=== PATIENT | female | born 1980 | race Caucasian/White ===

== ENCOUNTER → 2016-11-25 | Outpatient (CLI) | payer BC ==
[~2016-11-25] VITALS: Ht 177.8 cm; Wt 93.6 kg
[~2016-11-25] MED LIST: CALCITRIOL PO; CALCIUM 600/VIT1 CAP PO; CITRACAL + D CA1 TAB PO; DIFLUCAN 100MG100 MG PO; IRON TABLETS325 MG PO; LEVAQUIN 5500 MG/TA1 PO; LEVOXYL0.025 MG PO; LEVOXYL0.125 MG PO; MASON NATURAL2000 IU PO; NATURAL MAGNES200 MG PO; NEURONTIN300 MG/CAP PO; NEURONTIN600 MG/TAB PO; PRILOSEC 20MG20 MG PO; ROXICODONE 55 MG/TAB PO; SYNTHROID0.137 MG PO; TYLENOL 500MG500 MG PO; ULTRAM 50MG TAB50 MG PO; VITAMIN B11000 MCG/M IM; XANAX .25M0.25 MG/TA; ZOFRAN ODT4 MG PO
== END ==
LOC: COL.RAD 09:45
DX: R59.0 Localized enlarged lymph nodes (principal)

== ENCOUNTER → 2018-08-23 | Outpatient (CLI) | payer BC | LOC: MC.RAD 16:58 | DX: Z12.31 Encounter for screening mammogram for malignant neoplasm of breast (principal) ==